=== PATIENT | male | born 1975 | race Caucasian/White ===

== ENCOUNTER 2018-08-06 20:06 | Emergency (ER) | payer OTHER ==
[~2018-08-06] VITALS: Ht 177.8 cm; Wt 68.0 kg
[2018-08-06 20:47] VITALS: BP 151/94
== END 2018-08-07 00:08 | disposition home or self-care (01) ==
LOC: ER 20:06
DX: M62.838 Other muscle spasm (principal); R51 Headache
CPT/HCPCS: 70450; 72125